=== PATIENT | male | born 1955 | race Caucasian/White ===

== ENCOUNTER 2017-10-14 21:16 | Emergency (ER) | payer OTHER ==
[~2017-10-14] VITALS: Ht 185.4 cm; Wt 160.0 kg
[~2017-10-14 21:16] MED LIST: LIPI40TA PO
[2017-10-14 21:32] VITALS: BP 133/79; PULSE 78; RESP 20; TEMP 98.5; O2SAT 94
[2017-10-14] MEDS ORDERED: ACETAMINOPHEN 325 MG TAB PO ONE (22:00)
--- NOTE | 2017-10-14 22:06 | PD ---
HPI Chief Complaint: Skin Problem Time Seen by Provider: 21:27 Travel History International Travel<30 days: No Contact w/Intl Traveler<30days: No Traveled to known affect area: No History of Present Illness HPI The patient is a 62-year-old male who presents to the emergency department [facility]. The patient states he has not received his disability check for the last 6 days. The patient has been going to the [facility] daily, 3 days, however, has not received this checked. The patient states he walked to the [facility] earlier today, however, they were closed. The police found the patient laying down outside of the [facility] clinic and called EMS. The patient states he is currently homeless and trying to get into the [facility] for help with housing and his disability check. The patient does note a history of anxiety, denies any current suicidal ideation or homicidal ideation. He denies illicit drug use or alcohol use. He does complain of a chronic rash to the groin, states he's been able to shower or clean for last 6 days secondary to current housing situation difficulties. He also complains of pain in the bottom of both feet after ambulating with cracks on the toes bilaterally. He denies any chest pain, shortness breath, nausea, vomiting, or abdominal pain. He is requesting a sleep in the emergency department overnight. PFSH Past Medical History Autoimmune Disease: No Blood Disorders: No Anxiety: Yes Depression: Yes Cardiovascular Problems: Yes High Cholesterol: Yes Diabetes: Yes Patient Takes Glucophage: No Diminished Hearing: No Endocrine: Yes Gastrointestinal Disorders: No Genitourinary: No Hepatitis: Yes (HEP C) Hypertension: Yes Immune Disorder: No Implanted Vascular Access Dvce: No Musculoskeletal: No Neurologic: No Psychiatric: Yes Reproductive: No Respiratory: No Immunizations Current: Yes Schizophrenia: Yes (PARANOID TYPE) Past Surgical History Appendectomy: Yes Neurologic Surgery: No Tonsillectomy: Yes Other Surgery: Yes (APPY, TONSILECTOMY) Social History Alcohol Use: No (HX OF ETOH ABUSE) Tobacco Use: Yes (1 PPD) Substance Use: No Allergies-Medications (Allergen,Severity, Reaction): Coded Allergies: haloperidol (Unverified Allergy, Severe, 10/14/17) olanzapine (Unverified Allergy, Severe, 10/14/17) UNK REACTION thioridazine (Unverified Allergy, Severe, HIVES, 10/14/17) QUESTIONABLE ALLERGY ziprasidone (Unverified Allergy, Severe, HALLUCINATES, 10/14/17) codeine (Unverified Allergy, Unknown, 10/14/17) Per [facility] [phone]. fluphenazine (Unverified Adverse Reaction, Unknown, EPS, 10/14/17) Highly questionable report of "tongue heaviness." See my progress note dated 09/17/2016. Fili Lyn Reported Meds & Prescriptions Reported Meds & Active Scripts Active Reported Lipitor (Atorvastatin Calcium) 40 Mg Tab 40 Mg PO HS Review of Systems Except as stated in HPI: all other systems reviewed are Neg General / Constitutional: No: Fever Cardiovascular: No: Chest Pain or Discomfort Respiratory: No: Shortness of Breath Gastrointestinal: No: Nausea, Vomiting, Abdominal Pain Musculoskeletal: Positive: Edema, Pain Skin: Positive Rash, Positive Itching Psychiatric: Positive: Anxiety, No: Substance Abuse Physical Exam Narrative GENERAL: Awake, alert, pleasant 62-year-old male who appears his stated age and is in no acute respiratory distress. SKIN: Focused skin assessment warm/dry. Tinea cruris in the left groin greater than the right groin. HEAD: Atraumatic. Normocephalic. EYES: Pupils equal and round. No scleral icterus. No injection or drainage. ENT: No nasal bleeding or discharge. Poor dentition. NECK: Trachea midline. No JVD. CARDIOVASCULAR: Regular rate and rhythm. No murmur appreciated. RESPIRATORY: No accessory muscle use. Clear to auscultation. Breath sounds equal bilaterally. GASTROINTESTINAL: Abdomen soft, obese, no rebound tenderness. MUSCULOSKELETAL: Mild chronic venous stasis changes lower extremity is bilateral. Dried cracked fissures on the feet bilaterally which appear chronic. NEUROLOGICAL: Awake and alert. No obvious cranial nerve deficits. Motor grossly within normal limits. 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 PSYCHIATRIC: Appropriate mood and affect; insight and judgment normal. Data Data Last Documented VS Vital Signs Date Time Temp Pulse Resp B/P (MAP) Pulse Ox O2 Delivery O2 Flow Rate FiO2 10/14/17 21:32 98.5 78 20 133/79 (97) 94 Orders Orders Acetaminophen (Tylenol) (10/14/17 22:00) [facility] Medical Decision Making Medical Screen Exam Complete: Yes Emergency Medical Condition: Yes Medical Record Reviewed: Yes Differential Diagnosis Differential diagnosis includes poor social situation, depressive disorder NOS, adjustment reaction, stress reaction, stress fracture, bunion, dependent edema, tinea cruris. Narrative Course The patient's blood glucose was evaluated, was in the 80s. The patient has left kidney occurs greater than right tinea cruris, he does note he hasn't been unable to shower over the last Diagnosis Primary Impression: Tinea cruris Patient Instructions: General Instructions Additional Instructions: Proper hygiene to the groin, clean twice a day and keep dry. [facility] Said feet in warm soaks several times a day, wear appropriate shoes. Tylenol as needed for pain. Disposition: 01 DISCHARGE HOME Condition: Stable Jair Batres MD Oct 14, 2017 22:06
[2017-10-15 00:39] VITALS: PULSE 81; RESP 16; O2SAT 97
[2017-10-15 04:02] VITALS: BP 104/50; PULSE 65; RESP 18; O2SAT 95
== END 2017-10-15 05:40 | disposition home or self-care (01) ==
LOC: NEPD 21:16
DX: B35.6 Tinea cruris (principal); E11.9 Type 2 diabetes mellitus without complications; I10 Essential (primary) hypertension; B19.20 Unspecified viral hepatitis C without hepatic coma; Z72.0 Tobacco use; Z59.0 Homelessness
CPT/HCPCS: 99282